=== PATIENT | female | born 1965 ===

== ENCOUNTER 2020-01-13 13:07 | Outpatient (CLI) | payer OTHER | END 2020-01-13 13:21 | disposition home or self-care (01) | LOC: MAMO-SONO 13:07 | DX: N60.11 Diffuse cystic mastopathy of right breast (principal); Z12.31 Encounter for screening mammogram for malignant neoplasm of breast; Z87.898 Personal history of other specified conditions ==

== ENCOUNTER 2023-02-19 14:59 | Outpatient (CLI) | payer OTHER | END 2023-02-19 15:09 | disposition home or self-care (01) | LOC: MAMO-SONO 14:59 | PROVIDERS: ATTEND Obstetrics & Gynecology | DX: N60.11 Diffuse cystic mastopathy of right breast (principal) ==